=== PATIENT | female | born 1975 | race Caucasian/White ===

== ENCOUNTER 2018-09-14 16:44 | Emergency (ER) | payer OTHER, MEDICAID, SELFPAY ==
[2018-09-14 16:47] VITALS: BP 151/91; PULSE 115; RESP 18; TEMP 36.8; O2SAT 100; BMI 25.3
--- NOTE | 2018-09-14 18:10 | ED_ITS ---
HPI - Back Pain/Injury <Trinidad Gilbert PA-C - Last Filed: 09/14/18 21:54> General Chief Complaint: Back Pain/Injury Stated Complaint: THINKS KIDNEY STONE Time Seen by Provider: 09/14/18 17:58 Source: patient Mode of arrival: ambulatory Limitations: no limitations History of Present Illness HPI Narrative: this 42-year-old female complains of onset of right mid back pain last night. she does not remember any specific trauma, but states that she tends to hold her large cat on that shoulder while at the table and it is a rather awkward position. She did not take any medication for pain. She thinks that pain is better now than last night and early this morning but came in due to concern that this could be a kidney stone. She has no history of kidney stones. She does have a history of intermittent neck and back pain and strain, does not think this feels quite like that. She denies any fever or rash. She denies any urinary symptoms or hematuria. She denies any abdominal pain, nausea, or vomiting or any other new symptoms on systems review. Related Data Previous Rx's Medication Instructions Recorded lamotrigine 200 mg tablet 200 mg PO QDAY #30 tab 12/25/17 duloxetine 30 mg capsule,delayed 30 mg PO BID #60 cap 08/06/18 release cyclobenzaprine 10 mg PO Q8H PRN #10 tab 09/14/18 lidocaine 2 patch TOP DAILY #30 each 09/14/18 Allergies Allergy/AdvReac Type Severity Reaction Status Date / Time nitrofurantoin Allergy Unknown RAPID Verified 09/14/18 16:47 [From MACROBID] HEART RATE Penicillins [PENICILLINS] Allergy Unknown Hives Verified 09/14/18 16:47 Review of Systems <Trinidad Gilbert PA-C - Last Filed: 09/14/18 21:54> Review of Systems ROS Unobtainable: All systems reviewed & are unremarkable except as noted in HPI and below PFSH <Trinidad Gilbert PA-C - Last Filed: 09/14/18 21:54> Medical History Alcohol abuse (Chronic) Anxiety (Chronic 1989) Chronic back pain (Chronic 2008) Depression (Chronic 1989) Eczema (Chronic 2013) Hayfever (Chronic 2009) Herpes genitalis (Chronic 2000) IBS (irritable bowel syndrome) (Chronic 1993) Shoulder pain (Chronic 2013) Chicken pox (Resolved 1983) Surgical History No history of previous surgery (Resolved 05/2014) Family History Father Age: 64 High cholesterol Mother Age: 66 Hypertension High cholesterol Osteoporosis Grandmother Ovarian cancer Breast cancer Diabetes mellitus Brother No problems noted. Sister No problems noted. Grandfather Heart disease Grandfather Dementia Pneumonia Social History Smoking Status: Former smoker Family History Father Age: 64 High cholesterol Mother Age: 66 Hypertension High cholesterol Osteoporosis Grandmother Ovarian cancer Breast cancer Diabetes mellitus Brother No problems noted. Sister No problems noted. Grandfather Heart disease Grandfather Dementia Pneumonia Social History Smoking Status: Former smoker Comment: ETOH abuse Exam <Trinidad Gilbert PA-C - Last Filed: 09/14/18 21:54> Narrative Exam Narrative: GENERAL APPEARANCE: Patient sitting comfortably, in no distress. HEENT: PERRL, EOMI, no scleral icterus NECK: Supple LUNGS: Clear to auscultation bilaterally. HEART: Rate and rhythm regular, normal S1 and S2, no S3 or S4. ABDOMEN: Soft, nontender, nondistended, bowel sounds present x 4 quadrants, no masses palpable, no hepatosplenomegaly. No CVAT EXTREMITIES: No edema, no cyanosis DERMATOLOGIC: No jaundice or exanthem NEUROLOGIC: Alert and oriented with normal speech, gait and coordination MUSCULOSKELETAL: no tenderness over the thoracic spine. right inferior thoracic musculature is palpably tight compared to the left at the mid scapular line, moderately tender. Full range of motion of the upper extremities and trunk with mild tenderness on spine extension and a little bit on left rotation Initial Vital Signs Initial Vital Signs: Vital Signs Temperature 98.3 F 09/14/18 16:47 Pulse Rate 115 H 09/14/18 16:47 Respiratory Rate 18 09/14/18 16:47 Blood Pressure 151/91 H 09/14/18 16:47 Pulse Oximetry 100 09/14/18 16:47 <Scott Lea DO - Last Filed: 09/15/18 00:57> Initial Vital Signs Initial Vital Signs: Vital Signs Temperature 98.3 F 09/14/18 16:47 Pulse Rate 115 H 09/14/18 16:47 Respiratory Rate 18 09/14/18 16:47 Blood Pressure 151/91 H 09/14/18 16:47 Pulse Oximetry 100 09/14/18 16:47 Course <Trinidad Gilbert PA-C - Last Filed: 09/14/18 21:54> Additional Information: patient reported feeling improved after medications and wished discharge home. agreeable with plan to return if any acutely worsening symptoms or new symptoms over the weekend such as fever or vomiting Orders Ordered: ED Orders 09/14/18 16:50 Urine Microscopic Stat Discontinued Medications Cyclobenzaprine HCl (Flexeril) 10 mg PO NOW ONE Stop: 09/14/18 18:19 Last Admin: 09/14/18 18:29 Dose: 10 mg Ketorolac Tromethamine (Toradol) 60 mg IM NOW ONE Stop: 09/14/18 18:19 Last Admin: 09/14/18 18:30 Dose: 60 mg Lidocaine (Lidoderm) 1 each TOP NOW ONE Stop: 09/14/18 18:19 Last Admin: 09/14/18 18:29 Dose: 1 each Vital Signs - 8 hr 09/14/18 19:34 Temperature 98.4 F Pulse Rate 92 H Respiratory Rate 18 Blood Pressure 145/80 H Pulse Oximetry 100 <DO Belgica Mendoza Last Filed: 09/15/18 00:57> Orders Ordered: ED Orders 09/14/18 16:50 Urine Microscopic Stat Discontinued Medications Cyclobenzaprine HCl (Flexeril) 10 mg PO NOW ONE Stop: 09/14/18 18:19 Last Admin: 09/14/18 18:29 Dose: 10 mg Ketorolac Tromethamine (Toradol) 60 mg IM NOW ONE Stop: 09/14/18 18:19 Last Admin: 09/14/18 18:30 Dose: 60 mg Lidocaine (Lidoderm) 1 each TOP NOW ONE Stop: 09/14/18 18:19 Last Admin: 09/14/18 18:29 Dose: 1 each Vital Signs - 8 hr 09/14/18 19:34 Temperature 98.4 F Pulse Rate 92 H Respiratory Rate 18 Blood Pressure 145/80 H Pulse Oximetry 100 MDM - Back Pain/Injury <Trinidad Gilbert PA-C - Last Filed: 09/14/18 21:54> Lab Data Lab Results 09/14/18 Range/Units 16:50 Urine RBC None seen (0-5/HPF) Urine WBC None seen (0-5/HPF) Ur Squamous Epith Cells 10-30 /hpf H Amorphous Sediment 3+ Urine Bacteria None seen (None) Ur Culture Indicated? Cult not indicated Point of Care Testing Test Results Negative Urine Dip Bedside Urine Glucose Negative Bedside Urine Bilirubin - Negative Bedside Urine Ketone - Negative Urine Specific [place] 1.015 Bedside Urine Occult Blood +/- Bedside Urine pH 8.5 Bedside Urine Protein +/- 15 Bedside Urine Urobilinogen - Negative Bedside Urine Nitrite - Negative Bedside Urine Leukocytes - Negative Esterase <Scott Lea DO - Last Filed: 09/15/18 00:57> Lab Data Lab Results 09/14/18 Range/Units 16:50 Urine RBC None seen (0-5/HPF) Urine WBC None seen (0-5/HPF) Ur Squamous Epith Cells 10-30 /hpf H Amorphous Sediment 3+ Urine Bacteria None seen (None) Ur Culture Indicated? Cult not indicated Point of Care Testing Test Results Negative Urine Dip Bedside Urine Glucose Negative Bedside Urine Bilirubin - Negative Bedside Urine Ketone - Negative Urine Specific [place] 1.015 Bedside Urine Occult Blood +/- Bedside Urine pH 8.5 Bedside Urine Protein +/- 15 Bedside Urine Urobilinogen - Negative Bedside Urine Nitrite - Negative Bedside Urine Leukocytes - Negative Esterase Discharge Plan Departure Patient Disposition: Home Clinical Impression: Strain of thoracic region Qualifiers: Encounter type: initial encounter Qualified Code(s): S29.019A - Strain of muscle and tendon of unspecified wall of thorax, initial encounter Discharge Date/Time: 09/14/18 19:34 Interventions: ED Discharge Assessment Last Done: 09/14/18 19:34 Instructions: DI for Back Strain or Sprain Activity Restrictions/Additional Instructions: I agree with you that your pain seems to be muscular in nature given the t ightness on exam and that you have been carrying your deisy on the shoulder. you should return as we talked about if you have new symptoms such as vomiting, abdominal pain, fever, pain or weakness in the extremities or worsening back pain. Otherwise, you can use the pain patches along with ibuprofen 800 mg every 8 hr, and the muscle relaxant every 8 hr as needed ( do not drive with the muscle relaxant cyclobenzaprine as it can make you sleepy ). Please follow-up with your PCP next week to determine whether you might need further treatment such as physical therapy. Prescriptions: New cyclobenzaprine 10 mg tablet 10 mg PO Q8H PRN (Reason: muscle spasm/tightness) Qty: 10 RF: 0 lidocaine 5 % adhesive patch,medicated 2 patch TOP DAILY Qty: 30 RF: 0 No Action duloxetine [Cymbalta] 30 mg capsule,delayed release(DR/EC) 30 mg PO BID Qty: 60 RF: 1 lamotrigine [Lamictal] 200 mg tablet 200 mg PO QDAY Qty: 30 RF: 12 Referrals: Aida Deluna MD [Primary Care Provider] - <Scott Lea DO - Last Filed: 09/15/18 00:57> Cosign ED Attending Cosbrendanature Attestation: I was immediately available in the department for consultation. Documentation has been reviewed. I agree with assessment and plan.
[2018-09-14] MEDS: CYCLOBENZAPRINE 10 MG TABLET PO (18:29)
[2018-09-14] MEDS: LIDOCAINE PATCH 1 EACH ADH..PATCH TOP (18:29)
[2018-09-14] MEDS: KETOROLAC 60 MG/2 ML VIAL IM (18:30)
[2018-09-14 18:38] LABS: Bacteria Urine None Seen; RBC Urine None Seen (0-5/HPF); WBC Urine None Seen (0-5/HPF)
[2018-09-14 18:53] LABS: Amorphous Sediment Urine 3+; Culture Indicated Urine Cult Not Indicated; Squamous Epithelial Cell Urine 10-30 /HPF
[2018-09-14 19:34] VITALS: BP 145/80; PULSE 92; RESP 18; TEMP 36.9; O2SAT 100
== END 2018-09-14 19:34 | disposition home or self-care (01) ==
PROVIDERS: Emergency Provider Internal Medicine; PCP Family Medicine
DX: S29.019A Strain of muscle and tendon of unspecified wall of thorax, initial encounter (principal)
CPT/HCPCS: 81003; 81015; 81025; 96372; 99282; 99283; J1885

== ENCOUNTER 2019-06-07 11:46 | Emergency (ER) | payer OTHER, MEDICAID, SELFPAY ==
[2019-06-07 12:00] VITALS: BP 143/90; PULSE 119; RESP 18; TEMP 36.7; O2SAT 100
[2019-06-07 13:07] LABS: Add Manual Diff / Slide Review NO; Basophils Absolute Auto 0 /uL (0-100); Basophils Percent Auto 0.4 % (0-2); Eosinophils Absolute Auto 0 /uL (0-450); Eosinophils Percent Auto 0.8 % (2-4); Hematocrit 40.9 % (36-46); Lymphocytes Absolute Auto 1500 /uL (1100-4500); Lymphocytes Percent Auto 36.6 % (25-40); Mean Corpuscular HGB Conc 34.2 % (30-36); Mean Corpuscular Hemoglobin 34.5 PG (26-34); Mean Corpuscular Volume 100.7 fL (80-100); Monocytes Absolute Auto 400 /uL (0-900); Monocytes Percent Auto 9.3 % (3-14); Neutrophils Absolute Auto 2100 /uL (1500-7000); Neutrophils Percent Auto 52.9 % (50-75); Platelet Count 189 X10^3/uL (150-400); Red Blood Cell Count 4.06 X10^6/uL (4.0-5.2); Red Cell Distribution Width 12.3 % (11.6-14.8)
[2019-06-07 13:20] LABS: Alanine Aminotransferase 129 IU/L (<35); Albumin 5.2 g/dL (3.5-5.0); Albumin Globulin Ratio 1.6 (1.0-2.8); Alkaline Phosphatase 85 U/L (38-126); Aspartate Aminotransferase 156 IU/L (14-36); Bilirubin Total 0.6 mg/dL (0.2-1.3); Blood Urea Nitrogen 5 mg/dL (7-17); Calcium 8.9 mg/dL (8.4-10.2); Carbon Dioxide 26 mmol/L (22-32); Chloride 105 mmol/L (98-107); Estimated Glomerular Filt Rate > 60.0 mL/min (>60); Ethanol (ETOH) 267 mg/dL; Globulin 3.2 g/dL (1.7-4.1); Glucose 109 mg/dL (70-100); HEMOLYSIS < 15 (0-50); Potassium 3.8 mmol/L (3.4-5.1); Sodium 144 mmol/L (137-145); Total Protein 8.4 g/dL (6.3-8.2)
[2019-06-07 13:51] LABS: Ur Creatinine Normal (Normal); Ur Specific Gravity Normal (Normal)
[2019-06-07 13:52] LABS: UR Morphine/Opiate cutoff 300 Negative (Negative); Urine Amphetamines Negative (Negative); Urine Barbiturates Negative (Negative); Urine Benzodiazepines Negative (Negative); Urine Cocaine Negative (Negative); Urine MDMA Negative (Negative); Urine Methadone Negative (Negative); Urine Methamphetamines Negative (Negative); Urine Oxycodone Negative (Negative); Urine Phencyclidine Negative (Negative); Urine Tetrahydrocannabinol Negative (Negative); Urine Tricyclic Antidepressant Negative (Negative); Urine pH Normal (Normal)
--- NOTE | 2019-06-07 13:56 | ED.MEDCLEAR ---
HPI - Medical Clearance General Chief complaint: Medical Clearance Stated complaint: detox need cleared Time Seen by Provider: 06/07/19 12:00 Source: patient Mode of arrival: Ambulatory Limitations: no limitations History of Present Illness HPI Narrative: 43-year-old female former smoker and heavy drinker, to the tune of 18 beers daily presents with a request for medical clearance for rehab. She has been in talks with a [facility] and a 2nd in [place]. Patient has been through withdrawals before and has had seizures as a consequence. Her last drink was just prior to arrival. She is awake, alert and oriented, speaking clearly in walking a straight line. She denies any thoughts of suicidal or homicidal ideation. MD complaint: medical clearance requested Onset (ago): hour(s) Reason for Medical Clearance: intoxication Alleged Intoxication: Yes Compliant with Home Medications: Yes Associated Symptoms: denies other symptoms Treatments Prior to Arrival: none Related Information Previous Rx's Medication Instructions Recorded cyclobenzaprine 10 mg PO Q8H PRN #10 tab 09/14/18 duloxetine 30 mg capsule,delayed 30 mg PO BID #60 cap 06/04/19 release lamotrigine 200 mg tablet 200 mg PO DAILY #90 tab 06/04/19 Allergies Allergy/AdvReac Type Severity Reaction Status Date / Time nitrofurantoin Allergy Unknown RAPID Verified 06/07/19 12:04 [From MACROBID] HEART RATE Penicillins [PENICILLINS] Allergy Unknown Hives Verified 06/07/19 12:04 Review of Systems Constitutional Constitutional: Denies chills, Denies fatigue, Denies fever(s), Denies frequent falls, Denies lethargy and Denies weakness Eyes Eyes: Denies change in vision, Denies eye discharge, Denies irritation and Denies loss of vision ENT Ears, Nose, Mouth, and Throat: Denies change in voice, Denies dizziness, Denies neck pain, Denies sore throat and Denies throat swelling Cardiovascular Cardiovascular: Denies chest pain, Denies irregular heart rhythm, Denies lightheadedness, Denies palpitations, Denies dyspnea, Denies dyspnea on exertion and Denies orthopnea Respiratory Respiratory: Denies cough, Denies dyspnea, Denies dyspnea on exertion and Denies wheezing Gastrointestinal Gastrointestinal: Denies abdominal pain, Denies change in bowel habits, Denies diarrhea, Denies nausea and Denies vomiting Genitourinary Genitourinary: Denies hematuria, Denies flank pain, Denies urinary incontinence and Denies urinary urgency Musculoskeletal Musculoskeletal: Denies back pain, Denies muscle weakness, Denies neck pain, Denies numbness and Denies tingling Integumentary/Breasts Skin/Breast: Denies pruritus, Denies erythema, Denies rash and Denies wounds Neurologic Neurologic: Denies behavioral changes, Denies confusion, Denies dizziness, Denies frequent falls, Denies loss of vision, Denies numbness, Denies tingling and Denies weakness Psychiatric Psychiatric: Denies anxiety, Denies behavioral changes, Denies confusion, Denies depression, Denies homicidal ideation and Denies suicidal ideation Endocrine Endocrine: Denies fatigue, Denies flushing and Denies palpitations Hematologic/Lymphatic Hematologic/Lymphatic: Denies easy bruising Allergic/Immunologic Allergic/Immunologic: Denies urticaria, Denies throat swelling and Denies wheezing Patient History Medical History Alcohol abuse (Chronic) Anxiety (Chronic 1989) Chicken pox (Resolved 1983) Chronic back pain (Chronic 2008) Depression (Chronic 1989) Eczema (Chronic 2013) Hayfever (Chronic 2009) Herpes genitalis (Chronic 2000) IBS (irritable bowel syndrome) (Chronic 1993) Shoulder pain (Chronic 2013) Surgical History No history of previous surgery (Resolved 05/2014) Family History Father Age: 64 High cholesterol Mother Age: 66 Hypertension High cholesterol Osteoporosis Grandmother Ovarian cancer Breast cancer Diabetes mellitus Brother No problems noted. Sister No problems noted. Grandfather Heart disease Grandfather Dementia Pneumonia Social History Smoking Status: Former smoker alcohol intake frequency: other Substance Use Type: marijuana Exam Narrative Exam Narrative: GENERAL: [43] year old patient appears stated age. Well-nourished, well-developed patient, in mild distress. HEAD: Atraumatic. Normocephalic. EYES: Pupils equal round and reactive. Extraocular motions intact. No scleral icterus. No injection or drainage. ENT: Nose without bleeding, purulent drainage. Throat without erythema, tonsillar hypertrophy or exudate. Airway patent. NECK: Trachea midline. Non tender CARDIOVASCULAR: Regular rate and rhythm without murmurs, gallops, or rubs. RESPIRATORY: Clear to auscultation. Breath sounds equal bilaterally. No wheezes, rales, or rhonchi. GASTROINTESTINAL: Abdomen soft, non-tender, nondistended. EXTREMITIES: No edema or joint tenderness. BACK: Nontender without deformity or crepitance. No flank tenderness. NEURO: AOx3. SKIN: No rash or erythema of visible areas Initial Vital Signs Initial Vital Signs: Vital Signs Temperature 98.1 F 06/07/19 12:00 Pulse Rate 119 H 06/07/19 12:00 Respiratory Rate 18 06/07/19 12:00 Blood Pressure 143/90 H 06/07/19 12:00 Pulse Oximetry 100 06/07/19 12:00 MDM - Medical Clearance Lab Data Result diagrams: 06/07/19 13:00 06/07/19 13:00 Labs: Lab Results 06/07/19 06/07/19 06/07/19 Range/Units 13:00 13:00 13:24 WBC 4.0 L (4.5-11.0) X10^3/uL RBC 4.06 (4.0-5.2) X10^6/uL Hgb 14.0 (12.0-16.0) g/dL Hct 40.9 (36-46) % MCV 100.7 H (80-100) fL MCH 34.5 H (26-34) PG MCHC 34.2 (30-36) % RDW 12.3 (11.6-14.8) % Plt Count 189 (150-400) X10^3/uL Neut % (Auto) 52.9 (50-75) % Lymph % (Auto) 36.6 (25-40) % [place] % (Auto) 9.3 (3-14) % Eos % (Auto) 0.8 L (2-4) % Baso % (Auto) 0.4 (0-2) % Neut # (Auto) 2100 (9536-2290) /uL Lymph # (Auto) 1500 (8913-3221) /uL [place] # (Auto) 400 (0-900) /uL Eos # (Auto) 0 (0-450) /uL Baso # (Auto) 0 (0-100) /uL Sodium 144 (137-145) mmol/L Potassium 3.8 (3.4-5.1) mmol/L Chloride 105 (98-107) mmol/L Carbon Dioxide 26 (22-32) mmol/L BUN 5 L (7-17) mg/dL Creatinine 0.50 L (0.52-1.04) mg/dL Estimated GFR > 60.0 (>60) mL/min BUN/Creatinine Ratio 10.0 (6-22) Glucose 109 H (70-100) mg/dL Calcium 8.9 (8.4-10.2) mg/dL Total Bilirubin 0.6 (0.2-1.3) mg/dL AST 156 H (14-36) IU/L ALT 129 H (<35) IU/L Alkaline Phosphatase 85 (38-126) U/L Total Protein 8.4 H (6.3-8.2) g/dL Albumin 5.2 H (3.5-5.0) g/dL Globulin 3.2 (1.7-4.1) g/dL Albumin/Globulin Ratio 1.6 (1.0-2.8) U Morph 300 ng/mL cutoff Negative (Negative) Ur Oxycodone Screen Negative (Negative) Urine Methadone Screen Negative (Negative) Ur Barbiturates Screen Negative (Negative) U Tricyclic Antidepress Negative (Negative) Ur Phencyclidine Scrn Negative (Negative) Ur Amphetamines Screen Negative (Negative) U Methamphetamines Scrn Negative (Negative) Ur MDMA Scrn (Ecstasy) Negative (Negative) U Benzodiazepines Scrn Negative (Negative) Urine Cocaine Screen Negative (Negative) U Marijuana (THC) Screen Negative (Negative) Ethyl Alcohol 267 H ( - 10) mg/dL Point of Care Testing Test Results Negative MDM Narrative Medical decision making narrative: Patient has completed the initial questioning for the facility in [place]. I called them directly and they state that the patient will need a medical clearance. I informed the patient and the facility that I am not prepared to attach a medical clearance to patient traveling that far and suggested that when she is ready she go to a facility closer to the rehab facility to get this medical clearance. She understands and has had her questions answered to her apparent satisfaction. Return precautions given Discharge Plan Departure Patient Disposition: Home Clinical Impression: Alcohol abuse Discharge Date/Time: 06/07/19 15:33 Activity Restrictions/Additional Instructions: *You have been diagnosed with [alcohol abuse] *What to do: * continue to take medications as directed *Follow up with your primary care provider in 2-3 days, call for an appointment. Let them know you were seen in the Emergency Department and that we ask that you be seen in follow up *Return to ER if you should have any new, worsening or concerning symptoms Prescriptions: No Action lamotrigine [Lamictal] 200 mg tablet 200 mg PO DAILY Qty: 90 RF: 0 duloxetine [Cymbalta] 30 mg capsule,delayed release(DR/EC) 30 mg PO BID Qty: 60 RF: 0 cyclobenzaprine 10 mg tablet 10 mg PO Q8H PRN (Reason: muscle spasm/tightness) Qty: 10 RF: 0 [facility]errals: [facility] [Outside]
[2019-06-07 15:30] VITALS: BP 138/96; PULSE 128; RESP 18; O2SAT 99
== END 2019-06-07 15:33 | disposition home or self-care (01) ==
PROVIDERS: Emergency Provider Emergency Medicine
DX: F10.10 Alcohol abuse, uncomplicated (principal)
CPT/HCPCS: 36415; 80053; 80305; 80320; 81025; 85025; 99282; 99283

== ENCOUNTER → 2019-07-29 15:34 | Outpatient (CLI) | payer OTHER, MEDICAID, SELFPAY ==
[2019-07-29 17:21] LABS: Alanine Aminotransferase 22 IU/L (<35); Albumin 4.6 g/dL (3.5-5.0); Albumin Globulin Ratio 1.7 (1.0-2.8); Alkaline Phosphatase 62 U/L (38-126); Aspartate Aminotransferase 32 IU/L (14-36); BUN Creatinine Ratio 8.6 (6-22); Bilirubin Total 0.4 mg/dL (0.2-1.3); Blood Urea Nitrogen 6 mg/dL (7-17); Calcium 9.6 mg/dL (8.4-10.2); Carbon Dioxide 31 mmol/L (22-32); Chloride 99 mmol/L (98-107); Estimated Glomerular Filt Rate > 60.0 mL/min (>60); Globulin 2.7 g/dL (1.7-4.1); Glucose 84 mg/dL (70-100); HEMOLYSIS < 15 (0-50); Potassium 4.9 mmol/L (3.4-5.1); Sodium 139 mmol/L (137-145); Total Protein 7.3 g/dL (6.3-8.2)
== END ==
PROVIDERS: Visit Provider Family Medicine
DX: R94.5 Abnormal results of liver function studies (principal)
CPT/HCPCS: 36415; 80053

== ENCOUNTER → 2019-10-02 16:50 | Outpatient (CLI) | payer OTHER, MEDICAID, SELFPAY ==
--- NOTE | 2019-10-02 16:52 | DI.RAD.S_ITS ---
PROCEDURE: XR ELBOW RT MIN 3V INDICATIONS: Persistent right elbow pain TECHNIQUE: 3 views of the elbow were acquired. COMPARISON: None. FINDINGS: Bones: There is a minimally displaced intra-articular fracture of right radial head with up to 2 mm diastases at the fracture site. No other fracture or dislocation. No suspicious bony lesions. Soft tissues: Displacement of anterior fat pad is seen consistent with moderate joint effusion. No suspicious soft tissue calcifications. IMPRESSION: Minimally displaced intra-articular fracture of right radial head with moderate amount of joint effusion. Dictated by: Isidoro Arriaga M.D. on 10/02/2019 at 18:52 Approved by: Isidoro Arriaga M.D. on 10/02/2019 at 18:56
== END ==
PROVIDERS: Referring Provider Family Medicine; Visit Provider Family Medicine
DX: M25.521 Pain in right elbow (principal); S52.121A Displaced fracture of head of right radius, initial encounter for closed fracture; X58.XXXA Exposure to other specified factors, initial encounter
CPT/HCPCS: 73080